=== PATIENT | female | born 1990 | race Caucasian/White ===

== ENCOUNTER → 2016-08-05 | Day surgery (SDC) | payer OTHER ==
[~2016-08-05] MED LIST: Buffered Lidocaine 1% SYR 3ML* 3 ML/SYR SYRINGE INTRADERM ONE; Bupivacaine 0.5% W/EPI SDV* 30 ML VIAL ONE; Dexamethasone IV* 4 MG/ML 1 ML (4 MG) ONE; Dexamethasone TAB* 4 MG PO ONE; DiMENhydriNATE IV* 50 MG/ML VIAL IV PUSH PRN; Famotidine IV* 10 MG/ML 2 ML (20 mg) IV ONE; Famotidine IV* 10 MG/ML 2 ML (20 mg) ONE; Glycopyrrolate IV* 0.2 MG/ML 1 ML VIAL ONE; HYDROcodone/ACETAMIN 5-325 MG* 1 TAB ONE; HYDROcodone/ACETAMIN 5-325 MG* 1 TAB PO PRN; Ibuprofen TAB* 600 MG PO PRN; Iohexol 300* (CONTRAST) 10 ML SDV IV ONE; Ketorolac INJ* 30 MG/ML 1 ML VIAL IV PUSH PRN; Ketorolac INJ* 30 MG/ML 1 ML VIAL ONE; Lidocaine 2% MPF* 2 ML VIAL ONE; Midazolam* 1 MG/ML 5 ML VIAL (5 MG) ONE; Ondansetron INJ* 2 MG/ML VIAL IV ONE; Ondansetron INJ* 2 MG/ML VIAL IV PRN; Ondansetron INJ* 2 MG/ML VIAL ONE; Propofol* 10 MG/ML 20 ML BTL IV PUSH ONE; Succinylcholine* 20 MG/ML 10 ML VIAL ONE; ceFOXitin 2 GM IVPREMIX* 2 GM/50 ML BAG ONE; fentaNYL* 50 MCG/ML 2 ML VIAL (100 MCG VIAL) IV PRN; fentaNYL* 50 MCG/ML 5 ML VIAL (250 MCG VIAL) ONE
[2016-08-05 14:34] LABS: Hematocrit 40 % (35-47); Hemoglobin 13.5 g/dl (12.0-16.0); Mean Corpuscular HGB Conc 34 g/dl (31-36); Mean Corpuscular Hemoglobin 30 pg (27-31); Mean Corpuscular Volume 89 fL (80-97); Mean Platelet Volume 10 um3 (7.4-10.4); Red Blood Count 4.51 10^6/ul (4.0-5.4); Red Cell Distribution Width 13 % (10.5-15); White Blood Count 16.6 10^3/ul (3.5-10.8)
[2016-08-05 14:47] LABS: ALT 32 U/L (7-52); AST 22 U/L (13-39); Albumin 4.2 g/dL (3.2-5.2); Alkaline Phosphatase 67 U/L (34-104); Amylase 20 U/L (29-103); Anion Gap 8 mmol/L (2-11); BUN/Creatinine Ratio 10.4 (8-20); Blood Urea Nitrogen 8 mg/dL (6-24); C Reactive Protein 29.87 mg/L (< 5.00); CO2 Carbon Dioxide 24 mmol/L (22-32); Calcium 9.5 mg/dL (8.6-10.3); Chloride 104 mmol/L (101-111); EGFR African American 114.8 (>60); EGFR Non-African American 89.3 (>60); Globulin 3.8 g/dL (2-4); Glucose 104 mg/dL (70-100); Lipase 12 U/L (11.0-82.0); Potassium 3.7 mmol/L (3.5-5.0); Sodium 136 mmol/L (133-145)
--- NOTE | 2016-08-05 17:12 | RAD ---
INDICATION: Abdominal pain. History of polycystic ovary syndrome. COMPARISON: None. TECHNIQUE: Multidetector CT images were obtained from the lung bases to the ischial tuberosities with 150 mL Omnipaque 300 IV and oral contrast. Multiplanar reformation. REPORT: Minimal linear LEFT basilar atelectasis. Diffuse decreased density of the liver consistent with fatty infiltration. Peripheral wedge-shaped region of relative hyperdensity at the dome of the RIGHT anterior hepatic segment measuring up to 2.7 cm diameter on the axial images and 2.3 cm cephalocaudal on the coronal image is most suspicious for focal fatty sparing. Unremarkable gallbladder and pancreas. Multiple splenules at the splenic hilum and approximating the medial inferior margin of the spleen. Unremarkable upper GI and small bowel. Inflamed retrocecal appendix measures up to 1.4 cm diameter. The appendix is most conspicuous on axial images 52-62 and coronal reformatted images 53-60. Potential 0.9 cm appendicolith at the ostium. Mild to moderate periappendiceal inflammatory change. No extra enteric gas or loculated abscess collection evident. Trace RIGHT lower quadrant free fluid. Negative for free air or hernias. Normal adrenal glands. Unremarkable kidneys with symmetric contrast excretion. Unremarkable ureters and urinary bladder. Leftward deviated anteverted uterus with IUD in place. Unremarkable adnexal regions. Negative for lymphadenopathy. Unremarkable dominant retroperitoneal vasculature with physiologic distention of the IVC. Negative for suspicious osseous lesions. IMPRESSION: 1. Acute appendicitis without periappendiceal abscess. 2. Nonemergent follow-up hepatic ultrasound suggested to further assess probable focus of fatty sparing at the dome of the liver.
--- NOTE | 2016-08-05 18:56 | ED ---
Johnathon Sandhu Billy, scribed for Chilo Briones MD on 08/05/16 at 1413 . Abdominal Pain/Female - HPI Summary HPI Summary: Patient is a 26 year-old female coming to the ED presenting with constant epigastric pain starting 2 days ago. She states that she was flying home from [place] during onset. Since onset, her pain has radiated diffusely. She reports nausea but denies any vomiting or diarrhea. Denies vaginal discharge or bleeding. Last BM 24 hours ago. Pain severity 8/10 before GI cocktail given at [facility]; 6/10 at this time. She states she had a similar sensation of pain previously, but that episode resolved after 1 day, and she states it was "just gas" at that time. PMHx of PCOS. - History of Current Complaint Chief Complaint: EDAbdPain Stated Complaint: ABD PAIN Time Seen by Provider: 08/05/16 14:00 Hx Obtained From: Patient Onset/Duration: Gradual Onset, Lasting Days, Still Present Timing: Constant Severity Initially: Moderate Severity Currently: Moderate Pain Intensity: 6 Pain Scale Used: 0-10 Numeric Location: Diffuse, Epigastric Radiates: Yes Radiates to: Other - diffusely (since onset) Aggravating Factor(s): Nothing Alleviating Factor(s): Other: - GI cocktail Associated Signs and Symptoms: Positive: Nausea. Negative: Vaginal Bleeding, Vaginal Discharge, Vomiting, Diarrhea Allergies/Adverse Reactions: Allergies Allergy/AdvReac Type Severity Reaction Status Date / Time Antihistamines Allergy Unknown See Comment Uncoded 08/05/16 14:24 Home Medications: Home Medications NK [No Home Medications Reported] 08/05/16 [History Confirmed 08/05/16] PMH/Surg Hx/FS Hx/Imm Hx History: Reports: Other Problems/Disorders - PCOS Psychiatric History: Reports: Hx Post Traumatic Stress Disorder Infectious Disease History: No Infectious Disease History: Denies: Traveled Outside the [place] in Last 30 Days - Family History Known Family History: Positive: Hypertension - Social History Alcohol Use: Occasionally Hx Substance Use: No Substance Use Type: Reports: None Hx Tobacco Use: No Smoking Status (MU): Never Smoked Tobacco Review of Systems Positive: Abdominal Pain, Nausea. Negative: Vomiting, Diarrhea Negative: discharge All Other Systems Reviewed And Are Negative: Yes Physical Exam - Summary Physical Exam Summary: VITAL SIGNS: Reviewed. GENERAL: Patient is an obese female who is lying comfortable in the stretcher. Patient is not in any acute respiratory distress. HEAD AND FACE: Normocephalic and atraumatic. EYES: PERRLA, EOMI x 2, No injected conjunctiva. EARS: Hearing grossly intact. Ear canals and tympanic membranes are WNL. MOUTH: Oropharynx within normal limits. NECK: Supple, trachea is midline, no adenopathy, no JVD. CHEST: Symmetric, no tenderness at palpation LUNGS: Clear to auscultation bilaterally. No wheezing or crackles. CVS: RRR,, S1 and S2 present, no murmurs or gallops appreciated. ABDOMEN: Soft, mild diffuese tenderness. No signs of distention. Positive bowel sounds. No rebound no guarding, and no masses palpated. No abdominal bruit or pulsations. EXTREMITIES: FROM in all major joints, no edema, no cyanosis or clubbing. NEURO: Alert and oriented x 3. No acute neurological deficits. Speech is normal. SKIN: Dry and warm Triage Information Reviewed: Yes Vital Signs On Initial Exam: Initial Vitals Temp Pulse Resp BP Pulse Ox 97.5 F 85 16 142/90 100 08/05/16 12:06 08/05/16 12:06 08/05/16 12:06 08/05/16 12:06 08/05/16 12:06 Vital Signs Reviewed: Yes Diagnostics - Vital Signs Vital Signs Temp Pulse Resp BP Pulse Ox 08/05/16 12:06 97.5 F 85 16 142/90 100 - Laboratory Result Diagrams: 08/05/16 14:18 08/05/16 14:18 Lab Statement: Any lab studies that have been ordered have been reviewed, and results considered in the medical decision making process. - CT abd/pel w CT Interpretation Completed By: Radiologist - 1. Acute appendicitis without periappendiceal abscess. 2. Nonemergent follow-up hepatic ultrasound suggested to further assess probable focus of fatty sparing at the dome of the liver. Re-Evaluation - Re-Evaluation First Eval Re-Evaluation Time: 17:21 Comment: Labs and imaging reviewed with the patient. Abdominal Pain Fem Course/Dx - Course Course Of Treatment: Patient is a 26 year-old female coming to the ED presenting with constant epigastric pain starting 2 days ago. She states that she was flying home from [place] during onset. She reports nausea but denied any vomiting or diarrhea. Denies vaginal discharge or bleeding. Last BM 24 hours ago. Pain severity 8/10 before GI cocktail given at [facility]; 6/10 at this time. She states she had a similar sensation of pain previously, but that episode resolved after 1 day, and she states it was "just gas" at that time. PMHx of PCOS. Blood work wnl except for increased WBCs of 16.6 and increase CRP of 29. Abdominal and pelvic CT impression: Acute appendicitis w/o abscess. I discussed the case with Dr. Munoz from surgery. He examined the patient and accepted the patient to her services. SHe is hemodynamically stable A+O x 3. - Diagnoses Differential Diagnosis: Positive: Appendicitis, Constipation, Diverticulitis, Gall Bladder Disease, Irritable Bowel Syndrome, Ovarian Cyst, Renal Colic, Urinary Tract Infection Provider Diagnoses: Acute appendicitis - Provider Notifications Discussed Care Of Patient With: Nurse for Dr. Munoz (surgery) @ 0911: as Dr. Munoz is currently in the OR, he will see the patient in the ED at his earliest convenience. Discharge - Discharge Plan Condition: Stable Disposition: ADMITTED TO [facility] documentation as recorded by the Johnathon simon Billy accurately reflects the service I personally performed and the decisions made by me, Chilo Briones MD.
--- NOTE | 2016-08-05 20:50 | SURGPN ---
Brief Operative Note - Surgery Procedures: PRE/POSTOP DX: ACUTE APPENDICITIS PROC: LAP APPENDECTOMY SURG: MECENAS ASSIST: BENJY CARL: ADRIANA CARNES EBL: MIN IVF: LR SPEC: APPENDIX DRAIN: NONE COMPL: NONE COND: STABLE TO RR EXTUBATED.
[2016-08-05 21:50] VITALS: BP 143/89
--- NOTE | 2016-08-06 04:08 | OP ---
DATE OF OPERATION: 08/05/16 - [facility] DATE OF : 86 SURGEON: Tj Munoz MD CAR ATTENDANT: PRIMO Lyon ANESTHESIOLOGIST: Dr. Cuadra. ANESTHESIA: General endotracheal anesthesia. PRE-OP DIAGNOSIS: Acute appendicitis. POST-OP DIAGNOSIS: Acute appendicitis. OPERATIVE PROCEDURE: Laparoscopic appendectomy. ESTIMATED BLOOD LOSS: Minimal. IV FLUIDS: Crystalloid. SPECIMEN: Appendix. DRAINS: None. COMPLICATIONS: None. COUNT: Instrument, needle, and sponge counts correct. DESCRIPTION OF PROCEDURE: The patient was brought to the operating room, placed on table supine. Sequential compression devices were placed on both lower extremities. General anesthesia was administered. The abdomen was prepped and draped in the usual sterile fashion. Time-out was performed. Local anesthetic was infiltrated into the skin and soft tissue prior to making each incision. Entry to the abdomen was through the transumbilical vertical incision using an open technique. After accessing the peritoneal cavity, carbon dioxide was insufflated to a pressure of 15 mmHg. Under direct visualization, 5 mm trocar was placed in the suprapubic midline and left lower quadrant. The appendix was identified. It appeared to be healing inflamed, dilated with no evidence of perforation nor gangrenous changes. The appendix was elevated. A window was created in the mesentery of the appendix at the base. The appendix was divided at the base with the Endo MARQUIS stapler with a ying cartridge. Mesentery of the appendix was divided with the Endo MARQUIS stapler with jarrett cartridge. The appendix was placed in an endoscopic retrieval bag. Appendix was removed. Otis lines were inspected and noted to be intact and hemostatic. Ports were removed under direct visualization and carbon dioxide was released. The umbilicus was closed with 0 Polysorb in a figure-of-8 fashion to approximate the fascia. Skin incisions were closed with 4-0 Monocryl in a subcuticular fashion. DermaFlex was applied to the sites. The patient tolerated the procedure well, was extubated and transferred to Recovery in stable condition. CC: [facility]* [id number]/[facility] #: [id number] MTDD
== END | disposition home or self-care (01) ==
LOC: ED 12:05 → OR 18:28
PROVIDERS: ATTEND Surgery
DX: K35.80 Unspecified acute appendicitis (principal); E66.9 Obesity, unspecified
CPT/HCPCS: 36415; 74177; 80053; 82150; 83690; 84702; 85025; 86140; 88304; 96374; 96375; 99283; C1776; J0330; J0694; J1100; J1885; J2250; J2405; J2704; J3010; Q9967